=== PATIENT | female | born 1935 | race Caucasian/White ===

== ENCOUNTER 2017-02-21 12:44 | Outpatient (CLI) | payer OTHER ==
--- NOTE | 2017-02-21 14:57 | DIAGNOSTIC IMAGING REPORT ---
PROCEDURE: XR CERVICAL SPINE 2 OR 3 VIEW INDICATION: PAIN TECHNIQUE: Three views. COMPARISON: None. FINDINGS: There is spondylosis at C5-6 and C6-7 with posterior osteophytic ridges at both levels. No evidence of an acute process or fracture. IMPRESSION: 1. 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
--- NOTE | 2017-02-21 15:02 | DIAGNOSTIC IMAGING REPORT ---
PROCEDURE: XR SHOULDER 2 OR MORE VW-RIGHT INDICATION: PAIN TECHNIQUE: Three views. COMPARISON: None. FINDINGS: Osseous structures and joint spaces are normal. IMPRESSION: 1. Normal right shoulder. 2. Results were called to Dr. Shelton
== END 2017-02-21 23:00 ==
LOC: XR SRH 12:44
DX: S13.4XXA Sprain of ligaments of cervical spine, initial encounter (principal); M75.51 Bursitis of right shoulder; M47.812 Spondylosis without myelopathy or radiculopathy, cervical region